=== PATIENT | male | born 1990 | race Caucasian/White ===

== ENCOUNTER 2018-12-07 21:56 | Emergency (ER) | payer BC, OTHER ==
[~2018-12-07] VITALS: Ht 170.2 cm; Wt 65.8 kg
--- NOTE | 2018-12-07 22:07 | ED Lower Extremity ---
General Stated Complaint: LT LEG SWELLING Source: patient, RN notes reviewed Exam Limitations: no limitations History of Present Illness Date Seen by Provider: Dec 07, 2018 Time Seen by Provider: 22:07 Allergies and Home Medications Allergies Coded Allergies: No Known Drug Allergies (Unverified , 12/07/18) Past Rehfall-Mcujzz-Zlfjwd Hx Patient Social History Recent Foreign Travel: No Contact w/Someone Who Travel: No Physical Exam Vital Signs Vital Signs - First Documented 12/07/18 22:02 Temp 99.7 Pulse 112 Resp 18 B/P (MAP) 155/106 (122) Pulse Ox 98 Capillary Refill : Height, Weight, BMI Height: '" Weight: lbs. oz. kg; BMI Method: Progress/Results/Core Measures Results/Orders Lab Results Laboratory Tests Test 12/07/18 22:06 12/07/18 22:42 Range/Units Urine Color YELLOW Urine Clarity CLEAR Urine pH 7.0 5-9 Urine Specific [place] 1.020 1.016-1.022 Urine Protein NEGATIVE NEGATIVE Urine Glucose (UA) NEGATIVE NEGATIVE Urine Ketones NEGATIVE NEGATIVE Urine Nitrite NEGATIVE NEGATIVE Urine Bilirubin NEGATIVE NEGATIVE Urine Urobilinogen 0.2 NORMAL MG/DL Urine Leukocyte Esterase NEGATIVE NEGATIVE Urine RBC (Auto) NEGATIVE NEGATIVE Urine RBC NONE /HPF Urine WBC NONE /HPF Urine Squamous Epithelial Cells RARE /HPF Urine Crystals NONE /LPF Urine Bacteria NONE /HPF Urine Casts NONE /LPF Urine Mucus TRACE /LPF Urine Culture Indicated NO White Blood Count 11.5 H 4.3-11.0 10^3/uL Red Blood Count 4.30 L 4.35-5.85 10^6/uL Hemoglobin 13.0 L 13.3-17.7 G/DL Hematocrit 38 L 40-54 % Mean Corpuscular Volume 87 80-99 FL Mean Corpuscular Hemoglobin 30 25-34 PG Mean Corpuscular Hemoglobin Concent 34 32-36 G/DL Red Cell Distribution Width 12.2 10.0-14.5 % Platelet Count 244 130-400 10^3/uL Mean Platelet Volume 8.9 7.4-10.4 FL Neutrophils (%) (Auto) 74 42-75 % Lymphocytes (%) (Auto) 14 12-44 % Monocytes (%) (Auto) 10 0-12 % Eosinophils (%) (Auto) 2 0-10 % Basophils (%) (Auto) 0 0-10 % Neutrophils # (Auto) 8.5 H 1.8-7.8 X 10^3 Lymphocytes # (Auto) 1.6 1.0-4.0 X 10^3 Monocytes # (Auto) 1.2 H 0.0-1.0 X 10^3 Eosinophils # (Auto) 0.2 0.0-0.3 10^3/uL Basophils # (Auto) 0.0 0.0-0.1 10^3/uL Erythrocyte Sedimentation Rate 26 H 0-15 MM/HR Sodium Level 141 135-145 MMOL/L Potassium Level 3.7 3.6-5.0 MMOL/L Chloride Level 102 98-107 MMOL/L Carbon Dioxide Level 27 21-32 MMOL/L Anion Gap 12 5-14 MMOL/L Blood Urea Nitrogen 9 7-18 MG/DL Creatinine 0.89 0.60-1.30 MG/DL Estimat Glomerular Filtration Rate > 60 BUN/Creatinine Ratio 10 Glucose Level 105 70-105 MG/DL Calcium Level 9.0 8.5-10.1 MG/DL Corrected Calcium 8.8 8.5-10.1 MG/DL Total Bilirubin 0.6 0.1-1.0 MG/DL Aspartate Amino Transf (AST/SGOT) 23 5-34 U/L Alanine Aminotransferase (ALT/SGPT) 22 0-55 U/L Alkaline Phosphatase 78 40-136 U/L Total Protein 7.5 6.4-8.2 GM/DL Albumin 4.3 3.2-4.5 GM/DL My Orders Orders - ALMAS UMANZOR DO Ua Culture If Indicated (12/07/18 22:04) Ed Iv/Invasive Line Start (12/07/18 22:23) Cbc With Automated Diff (12/07/18 22:23) Comprehensive Metabolic Panel (12/07/18 22:23) Hs C Reactive Protein (12/07/18 22:23) Erythrocyte Sedimentation Rate (12/07/18 22:23) Clindamycin 900 Mg/50 Ml Ivpb (Cleocin P (12/07/18 23:30) Dexamethasone Injection (Decadron Inject (12/07/18 23:30) Dexamethasone Injection (Decadron Inject (12/07/18 23:25) Vital Signs/I&O 12/07/18 22:02 Temp 99.7 Pulse 112 Resp 18 B/P (MAP) 155/106 (122) Pulse Ox 98 Departure Impression Primary Impression: Cellulitis of left lower extremity Disposition: HOME, SELF-CARE Condition: Stable Departure-Patient Inst. Decision time for Depature: 23:34 Referrals: [facility] (PCP) Primary Care Physician Patient Instructions: Cellulitis (Skin Infection), Adult (DC) Add. Discharge Instructions: CONTINUE YOUR CURRENTLY PRESCRIBED ORAL ANTIBIOTIC DIRECTED. RECOMMEND 600 mg OF IBUPROFEN EVERY 6 HOURS FOR PAIN/SWELLING. Work/School Note: Work Release Form Date Seen in the Emergency Department: Dec 07, 2018 Return to Work: Dec 08, 2018 Restrictions: No Restrictions ALMAS UMANZOR DO Dec 07, 2018 22:07
--- NOTE | 2018-12-07 22:15 | NUR ---
Dr Chase to room to see patient
[2018-12-07 22:17] LABS: CLARITY,URINE CLEAR; COLOR,URINE YELLOW; PROTEIN,URINE NEGATIVE (NEGATIVE)
[2018-12-07 22:18] LABS: BILIRUBIN,URINE NEGATIVE (NEGATIVE); GLUCOSE, URINE (UA) NEGATIVE (NEGATIVE); KETONES,URINE NEGATIVE (NEGATIVE); LEUKOCYTE ESTERASE ,URINE NEGATIVE (NEGATIVE); NITRITE,URINE NEGATIVE (NEGATIVE); SQUAMOUS EPITHELIAL CELL,UR RARE /HPF; UROBILINOGEN,URINE 0.2 MG/DL (NORMAL)
--- NOTE | 2018-12-07 22:40 | NUR ---
in room to start iv and draw blood, patient is resting quietly at this time. call light in reach, monitoring maintained.
[2018-12-07 22:51] LABS: BASOPHILS % (AUTO) 0 % (0-10); EOSINOPHILS % (AUTO) 2 % (0-10); HEMATOCRIT 38 % (40-54); LYMPHOCYTES % (AUTO) 14 % (12-44); MEAN CORPUSCULAR HEMOGLOBIN 30 PG (25-34); MEAN CORPUSCULAR HGB CONC 34 G/DL (32-36); MEAN CORPUSCULAR VOLUME 87 FL (80-99); MEAN PLATELET VOLUME 8.9 FL (7.4-10.4); MONOCYTES % (AUTO) 10 % (0-12); NEUTROPHILS % (AUTO) 74 % (42-75); PLATELET COUNT 244 10^3/uL (130-400); RED CELL DISTRIBUTION WIDTH 12.2 % (10.0-14.5); WHITE BLOOD COUNT 11.5 10^3/uL (4.3-11.0)
[2018-12-07 22:52] LABS: EOSINOPHILS # (AUTO) 0.2 10^3/uL (0.0-0.3); LYMPHOCYTES # (AUTO) 1.6 X 10^3 (1.0-4.0); MONOCYTES # (AUTO) 1.2 X 10^3 (0.0-1.0); NEUTROPHILS # (AUTO) 8.5 X 10^3 (1.8-7.8)
[2018-12-07 23:06] LABS: ERYTHROCYTE SEDIMENTATION RATE 26 MM/HR (0-15)
[2018-12-07 23:19] LABS: ALANINE AMINOTRANSFERASE 22 U/L (0-55); ALBUMIN 4.3 GM/DL (3.2-4.5); ALKALINE PHOSPHATASE 78 U/L (40-136); BILIRUBIN,TOTAL 0.6 MG/DL (0.1-1.0); BUN/CREATININE RATIO 10; CARBON DIOXIDE 27 MMOL/L (21-32); CHLORIDE 102 MMOL/L (98-107); CREATININE SERUM 0.89 MG/DL (0.60-1.30); GFR ESTIMATED > 60; GLUCOSE 105 MG/DL (70-105); POTASSIUM 3.7 MMOL/L (3.6-5.0); SODIUM 141 MMOL/L (135-145); TOTAL PROTEIN 7.5 GM/DL (6.4-8.2)
[2018-12-07] MEDS ORDERED: CLINDAMYCIN 900 MG/50 ML IVPB 50 ML IV ONE ×2 (23:24→23:30)
[2018-12-07] MEDS ORDERED: DEXAMETHASONE 10 MG/ML (DECADRON) 1 ML VIAL ONE (23:25)
[2018-12-07] MEDS ORDERED: DEXAMETHASONE 4 MG/ML SDV (DECADRON) IV ONE (23:30)
[2018-12-07 23:57] VITALS: BP 135/63
--- NOTE | 2018-12-08 00:02 | NUR ---
discharge instructions reviewed with patient, denies questions at this time. ambuliroty with no assistance out of department.
== END 2018-12-08 00:07 | disposition home or self-care (01) ==
LOC: ER FS 21:58
DX: L03.116 Cellulitis of left lower limb (principal)
CPT/HCPCS: 36415; 80053; 81000; 85025; 85652; 86141; 96365; 96375

== ENCOUNTER 2019-08-03 16:51 | Emergency (ER) | payer BC ==
[~2019-08-03] VITALS: Ht 170 cm; Wt 67.8 kg
--- NOTE | 2019-08-03 17:14 | ED EENT ---
History of Present Illness General Chief Complaint: Eye Problems Stated Complaint: PUNCHED EYEBALL Source: patient Exam Limitations: no limitations History of Present Illness Date Seen by Provider: Aug 03, 2019 Time Seen by Provider: 16:55 Initial Comments The patient is a pleasant 28-year-old male presents for evaluation of an injury to the right eye. He states that he was pulling weeds and when he looked down a stick scratched the medial portion of his right eye causing a subconjunctival hemorrhage. He states that he is having no pain in that his vision is normal but he thought he would need some antibiotics. He says that his tetanus is up-to-date. He has no other complaints. He states he feels completely fine and just wants the antibiotics. He is alert and oriented 4, calm, and appears to be in no distress. Timing/Duration: abrupt Severity: mild Location: eye (R) Prearrival Treatment: no prearrival treatment Associated Symptoms: denies symptoms Allergies and Home Medications Allergies Coded Allergies: No Known Drug Allergies (Unverified , 12/07/18) Patient Home Medication List Home Medication List Reviewed: Yes Review of Systems Review of Systems Constitutional: no symptoms reported Eyes: Other (scratch to the medial portion of the right eye) Ears: No Symptoms Reported Nose: no symptoms reported Mouth: no symptoms reported Throat: no symptoms reported Respiratory: no symptoms reported Cardiovascular: no symptoms reported Gastrointestinal: no symptoms reported Musculoskeletal: no symptoms reported Skin: no symptoms reported Neurological: No Symptoms Reported Hematologic/Lymphatic: No Symptoms Reported Immunological/Allergic: no symptoms reported All Other Systems Reviewed Negative Unless Noted: Yes Past Fvncxsx-Kjsqec-Mbuxes Hx Past Med/Social Hx: Reviewed Nursing Past Med/Soc Hx Patient Social History 2nd Hand Smoke Exposure: No Recent Foreign Travel: No Contact w/Someone Who Travel: No Physical Exam Height, Weight, BMI Height: 5'7.00" Weight: 145lbs. oz. [id number]; BMI Method:Stated General Appearance: WD/WN, no apparent distress Eyes: right eye conjunctival hemorrhage, right eye corneal abrasion (over the medial conjunctiva, no involvement of the iris or pupil region, no active bleeding, no globe rupture, no tenderness palpation); left eye normal inspection; bilateral eye PERRL, bilateral eye EOMI Neck: non-tender, full range of motion Cardiovascular: regular rate, rhythm, no edema, no JVD Respiratory: chest non-tender, normal breath sounds, no accessory muscle use Neurologic/Psychiatric: telegrapher agent II-XII nml as tested, no motor/sensory deficits, alert, normal mood/affect, oriented x 3 Skin: normal color, warm/dry Progress/Results/Core Measures Progress Progress Note : Progress Note @1715 - the patient has a corneal abrasion and subconjunctival hemorrhage to the medial portion of the right eye at the 3:00 position. He has no pain complaint and states that he feels fine. He will go home with antibiotics and follow-up with his PCP and/or the eye doctor provided. His tetanus immunization status is up-to-date. Advised the patient to return to the emergency Department imme diately for new or worsening symptoms. The patient expresses verbal understanding and agreement with the plan. Departure Impression Primary Impression: Corneal abrasion Additional Impression: Subconjunctival hemorrhage of right eye Disposition: HOME, SELF-CARE Condition: Stable Departure-Patient Inst. Decision time for Depature: 17:23 Referrals: [facility] (PCP) Primary Care Physician Patient Instructions: Eye Contusion (DC), Corneal Abrasion (DC), Subconjunctival Hemorrhage Add. Discharge Instructions: Follow-up with your eye doctor or primary care doctor in the next 1-2 days. Take the prescribed antibiotic medicine as directed. Return to the Emergency Department immediately for new or worsening symptoms. Scripts Ciprofloxacin HCl (Ciprofloxacin HCl) 2.5 Ml Drops 2 DROPS OP Q6H for 5 Days, #10 ML Prov: ARAM YAÑEZ DO 08/03/19 ARAM YAÑEZ DO Aug 03, 2019 17:14
[2019-08-03] MEDS ORDERED: CIPR2.5D2 OP (17:22)
[2019-08-03 17:30] VITALS: BP 145/87
== END 2019-08-03 17:32 | disposition home or self-care (01) ==
LOC: EDUNIT# 16:51 → ER FS 16:52
DX: S05.01XA Injury of conjunctiva and corneal abrasion without foreign body, right eye, initial encounter (principal); H11.31 Conjunctival hemorrhage, right eye; W28.XXXA Contact with powered lawn mower, initial encounter
CPT/HCPCS: 99282